=== PATIENT | female | born 1945 | race Two or more races ===

== ENCOUNTER 2023-08-21 08:45 | Inpatient (IN) | payer OTHER ==
[~2023-08-21] VITALS: Ht 162.6 cm; Wt 52.2 kg
[2023-08-21] MEDS ORDERED: LYRICA100 MG PO (11:09)
[2023-08-21] MEDS ORDERED: CLONAZEPAM0.25 MG PO (11:10)
[2023-08-21] MEDS ORDERED: JANUVIA100 MG PO (11:10)
[2023-08-21] MEDS ORDERED: PAXIL PO (11:10)
[2023-08-21] MEDS ORDERED: NAMEND PO (11:10)
[2023-08-21] MEDS ORDERED: EXELON1 EACH TD (11:11)
[2023-08-21] MEDS ORDERED: VITAMIN D PO (11:11)
[2023-08-21 11:22] LABS: HEMATOCRIT 36.4 % (36.0-45.00); HEMOGLOBIN 12.2 g/dL (12.0-15.00); MEAN CELL VOLUME 96.8 fL (80.00-100.00); MEAN CORPUSCULAR HEMOGLOBIN 32.3 pg (27.00-32.0); MEAN CORPUSCULAR HGB CONC 33.4 g/dl (32.0-36.0); PLATELET COUNT 169 K/uL (150-450); RED BLOOD COUNT 3.76 M/uL (4.00-6.00); RED CELL DISTRIBUTION WIDTH 13.1 % (11.5-14.5)
[2023-08-21 11:25] LABS: INR 1.16; PARTIAL THROMBOPLASTIN TIME 26.9 SECONDS (22.0-34.0)
[2023-08-21 11:40] LABS: ALBUMIN 4.2 gm/dL (3.4-5.0); BILIRUBIN TOTAL 0.45 mg/dL (0.3-1.2); CALCIUM 9.9 mg/dL (8.5-10.1); CREATININE SERUM 1.01 mg/dL (0.55-1.02); GFR 53.29; GLOBULINA 3.1 G/DL (2.4-3.5); TOTAL PROTEIN 7.3 gm/dL (6.4-8.2)
[2023-08-21 11:48] LABS: URINE APPEARANCE Clear; URINE BILIRRUBIN Negative (NEGATIVE); URINE BLOOD Negative; URINE COLOR Yellow; URINE GLUCOSE Negative (NEGATIVE); URINE LEUKOCYTE Large; URINE NITRATE Negative; URINE PROTEIN Negative (NEGATIVE); URINE UROBILINOGEN 0.2 E.U./dl
[2023-08-21 11:54] LABS: URINE BACTERIA 419.5 uL (0.0-1933); URINE EPITHELIAL CELLS 7.7 uL (0.0-38.8); URINE RBC 3.3 uL (0.0-20.8); URINE WBC 54.8 uL (0.0-23.2)
[2023-08-28 07:09] LABS: HEMATOCRIT 26.9 % (36.0-45.00); MEAN CELL VOLUME 96.5 fL (80.00-100.00); MEAN CORPUSCULAR HGB CONC 35.1 g/dl (32.0-36.0); RED BLOOD COUNT 2.79 M/uL (4.00-6.00); RED CELL DISTRIBUTION WIDTH 12.7 % (11.5-14.5)
[2023-08-28 08:09] LABS: HEMOGLOBIN 9.4 g/dL (12.0-15.00); MEAN CORPUSCULAR HEMOGLOBIN 33.6 pg (27.00-32.0); PLATELET COUNT 134 K/uL (150-450)
[2023-08-29 08:22] LABS: HEMATOCRIT 25.3 % (36.0-45.00); MEAN CELL VOLUME 95.1 fL (80.00-100.00); MEAN CORPUSCULAR HGB CONC 34.4 g/dl (32.0-36.0); RED BLOOD COUNT 2.66 M/uL (4.00-6.00); RED CELL DISTRIBUTION WIDTH 12.9 % (11.5-14.5)
[2023-08-29 08:27] LABS: MEAN CORPUSCULAR HEMOGLOBIN 32.7 pg (27.00-32.0)
[2023-08-29 08:28] LABS: HEMOGLOBIN 8.7 g/dL (12.0-15.00); PLATELET COUNT 117 K/uL (150-450)
[2023-08-29] MEDS ORDERED: MEMANTINE HCL10 MG (13:12)
[2023-08-29] MEDS ORDERED: FENOFIBRATE54 MG (13:12)
[2023-08-29] MEDS ORDERED: PAROXETINE HCL30 MG (13:12)
[2023-08-29] MEDS ORDERED: VITAMIN D325 MCG (13:14)
[2023-08-31 08:49] LABS: HEMOGLOBIN 10.3 g/dL (12.0-15.00); MEAN CELL VOLUME 93.5 fL (80.00-100.00); MEAN CORPUSCULAR HEMOGLOBIN 33.2 pg (27.00-32.0); MEAN CORPUSCULAR HGB CONC 35.5 g/dl (32.0-36.0); PLATELET COUNT 136 K/uL (150-450); RED CELL DISTRIBUTION WIDTH 13.1 % (11.5-14.5)
[2023-08-31] MEDS ORDERED: GABAPENTIN100 MG PO (13:44)
[2023-08-31] MEDS ORDERED: EXELON1 EACH TD (13:44)
[2023-08-31] MEDS ORDERED: LOVENOX30 MG/0.3 SUBCUTANEO (13:44)
[2023-08-31] MEDS ORDERED: NORFLEX100MG PO (13:44)
[2023-08-31] MEDS ORDERED: PAROXETINE HCL10 MG PO (13:44)
[2023-08-31] MEDS ORDERED: NAMENDA10 MG PO (13:44)
[2023-08-31] MEDS ORDERED: CLONAZEPAM0.25 MG PO (13:44)
[2023-08-31] MEDS ORDERED: JANUVIA100 MG PO (13:44)
[2023-08-31] MEDS ORDERED: INTEGRA F CAPS1 EACH PO (13:44)
[2023-08-31] MEDS ORDERED: ABANEU-SL TABL1 EACH SL (13:44)
[2023-08-31] MEDS ORDERED: XARELTO10 MG PO (13:54)
== END 2023-08-31 15:01 | DRG 470 ==
LOC: O/R 08-27 05:30 → SURH 08-27 08:45 → SURG 08-27 15:34
PROVIDERS: ADMIT Orthopaedic Surgery; ATTEND Orthopaedic Surgery
PROC: 0SRC0JZ Replacement of Right Knee Joint with Synthetic Substitute, Open Approach (ICD-10-PCS; principal; 2023-08-27 15:15)
PROC: 30233N1 Transfusion of Nonautologous Red Blood Cells into Peripheral Vein, Percutaneous Approach (ICD-10-PCS; 2023-08-29)
DX: M17.11 Unilateral primary osteoarthritis, right knee (principal); D62 Acute posthemorrhagic anemia; M85.661 Other cyst of bone, right lower leg; E11.9 Type 2 diabetes mellitus without complications; G30.9 Alzheimer's disease, unspecified; F02.80 Dementia in other diseases classified elsewhere, unspecified severity, without behavioral disturbance, psychotic disturbance, mood disturbance, and anxiety

== ENCOUNTER 2024-12-29 10:45 | Inpatient (IN) | payer OTHER ==
[~2024-12-29] VITALS: Ht 162.6 cm; Wt 54.4 kg
[~2024-12-29 10:45] MED LIST: ABANEU-SL TABL1 EACH SL; CLONAZEPAM0.25 MG PO; EXELON1 EACH TD; FENOFIBRATE54 MG; GABAPENTIN100 MG PO; INTEGRA F CAPS1 EACH PO; JANUVIA100 MG PO; LOVENOX30 MG/0.3 SUBCUTANEO; LYRICA100 MG PO; MEMANTINE HCL10 MG; NAMEND PO; NAMENDA10 MG PO; NORFLEX100MG PO; PAROXETINE HCL10 MG PO; PAROXETINE HCL30 MG; PAXIL PO; VITAMIN D PO; VITAMIN D325 MCG; XARELTO10 MG PO
[2024-12-30 13:03] VITALS: BP 140/77
[2025-01-05] MEDS ORDERED: INSULIN LISPRO 1,000 UNIT/10 ML UNITS SUBCUTANEO PRN (09:45)
[2025-01-05] MEDS ORDERED: ENALAPRILAT DIHYDRATE 1.25 MG/ML VIAL IV PRN (09:45)
[2025-01-05] MEDS ORDERED: DEXTROSE 50 % IN WATER 0.5 G/ML DISP.SYRIN IV PRN (09:45)
[2025-01-05] MEDS ORDERED: CEFAZOLIN SODIUM 1,000 MG VIAL IV SCH ×2 (10:15→18:00)
[2025-01-05] MEDS ORDERED: TRANEXAMIC ACID 100MG/1ML (1000MG) AMPUL IV ONE ×2 (10:15)
[2025-01-05] MEDS ORDERED: VANCOMYCIN HCL 1,000 MG VIAL IR ONE (10:30)
[2025-01-05] MEDS ORDERED: KETOROLAC TROMETHAMINE 60 MG VIAL IM ONE (10:30)
[2025-01-05] MEDS ORDERED: LIDOCAINE HCL 1%/EPINEPHRINE 50ML VIAL IJ ONE (10:30)
[2025-01-05] MEDS ORDERED: BUPIVACAINE HCL 30 ML VIAL IV ONE (10:30)
[2025-01-05] MEDS ORDERED: MORPHINE SULFATE 4 MG/ML VIAL IV ONE (10:30)
[2025-01-05] MEDS ORDERED: ONDANSETRON HCL 2 MG/ML VIAL IV PRN (13:30)
[2025-01-05] MEDS ORDERED: OxyCODONE HCL/APAP UD (PERCOCET) PO PRN (13:30)
[2025-01-05] MEDS ORDERED: CEFAZOLIN SODIUM 1,000 MG VIAL ONE (16:28)
[2025-01-05] MEDS ORDERED: MORPHINE SULFATE 4 MG/ML VIAL IV SCH (18:00)
[2025-01-05 18:17] VITALS: BP 145/73; O2SAT 96
[2025-01-05] MEDS ORDERED: GABAPENTIN 100 MG CAPSULE PO SCH (21:00)
[2025-01-05] MEDS ORDERED: ORPHENADRINE CITRATE 100 MG TABLET PO SCH (21:00)
[2025-01-06 00:45] VITALS: BP 141/76; O2SAT 97
[2025-01-06 06:51] LABS: HEMATOCRIT 34.5 % (36.0-45.00); HEMOGLOBIN 11.9 g/dL (12.0-15.00); MEAN CELL VOLUME 95.1 fL (80.00-100.00); MEAN CORPUSCULAR HEMOGLOBIN 32.9 pg (27.00-32.0); MEAN CORPUSCULAR HGB CONC 34.6 g/dl (32.0-36.0); PLATELET COUNT 181 K/uL (150-450); RED BLOOD COUNT 3.62 M/uL (4.00-6.00); RED CELL DISTRIBUTION WIDTH 13.4 % (11.5-14.5)
[2025-01-06 08:47] VITALS: BP 107/52; O2SAT 98
[2025-01-06] MEDS ORDERED: MEMANTINE HCL 10 MG TABLET PO SCH (09:00)
[2025-01-06] MEDS ORDERED: APIXABAN 2.5 MG TABLET PO SCH (09:00)
[2025-01-06 12:22] LABS: ALBUMIN 3.9 gm/dL (3.4-5.0); BILIRUBIN TOTAL 0.58 mg/dL (0.3-1.2); CALCIUM 9.4 mg/dL (8.5-10.1); GFR 53.76; GLOBULINA 3.3 G/DL (2.4-3.5); POTASSIUM 4.7 mEq/L (3.5-5.1); TOTAL PROTEIN 7.2 gm/dL (6.4-8.2)
[2025-01-06] MEDS ORDERED: IRON FUM,PS/FOLIC ACID/VITC/B3 1 CAP CAPSULE PO SCH (13:09)
[2025-01-06] MEDS ORDERED: SOD FERRIC GLUC COMPLX/SUCROSE 62.5 MG/5 ML AMPUL IV SCH (13:09)
[2025-01-06] MEDS ORDERED: Cyanocobalamin/Mecobalamin 1 TAB.SL SL SCH (13:10)
[2025-01-06 16:00] VITALS: BP 127/68; O2SAT 97
[2025-01-06] MEDS ORDERED: VITAMIN B COMPLEX 1 EACH PO SCH (17:00)
[2025-01-07 00:42] VITALS: BP 117/65; O2SAT 97
[2025-01-07 06:25] LABS: HEMOGLOBIN 10.4 g/dL (12.0-15.00); MEAN CELL VOLUME 93.9 fL (80.00-100.00); MEAN CORPUSCULAR HEMOGLOBIN 32.6 pg (27.00-32.0); MEAN CORPUSCULAR HGB CONC 34.7 g/dl (32.0-36.0); PLATELET COUNT 153 K/uL (150-450); RED BLOOD COUNT 3.19 M/uL (4.00-6.00)
[2025-01-07 08:42] VITALS: BP 129/64; O2SAT 98
== END 2025-01-07 17:00 | DRG 470 ==
LOC: O/R 01-05 05:35 → SURH 01-05 10:15
PROVIDERS: ADMIT Orthopaedic Surgery; ATTEND Orthopaedic Surgery
PROC: 0QUF0JZ Supplement Left Patella with Synthetic Substitute, Open Approach (ICD-10-PCS; 2025-01-05)
PROC: 0MNP0ZZ Release Left Knee Bursa and Ligament, Open Approach (ICD-10-PCS; 2025-01-05)
PROC: 0SRD0JZ Replacement of Left Knee Joint with Synthetic Substitute, Open Approach (ICD-10-PCS; principal; 2025-01-05 12:00)
DX: M17.0 Bilateral primary osteoarthritis of knee (principal); D62 Acute posthemorrhagic anemia; M85.661 Other cyst of bone, right lower leg; G30.9 Alzheimer's disease, unspecified; F02.80 Dementia in other diseases classified elsewhere, unspecified severity, without behavioral disturbance, psychotic disturbance, mood disturbance, and anxiety; E11.9 Type 2 diabetes mellitus without complications; F41.9 Anxiety disorder, unspecified; M85.662 Other cyst of bone, left lower leg; Z96.653 Presence of artificial knee joint, bilateral